=== PATIENT | male | born 1940 | race Caucasian/White ===

== ENCOUNTER → 2020-11-30 12:41 | Outpatient (CLI) | payer MEDICARE, SELFPAY ==
--- NOTE | 2020-11-30 12:51 | ECHOCS_ITS ---
Version 2 Reason For Study: AMALIA, Asthma, Afib Procedure This was a 2D Doppler, Color Flow transthoracic echocardiogram. The study was technically difficult. Contrast injection was performed. Bubble study performed. Exam performed in department. Left Ventricle Normal LV size. The estimated ejection fraction is 65 %. No evidence for diastolic dysfunction. No regional wall motion abnormalities noted. Right Ventricle Normal RV size. Normal systolic function. Atria The left atrium is mildly enlarged. The right atrium is mildly enlarged. Bubble study strongly positive for R to L shunt. Mitral Valve There is no mitral valve stenosis. Mild (1+) mitral valve insufficiency. Tricuspid Valve There is no tricuspid stenosis. Mild tricuspid valve insufficiency. Pulmonary artery systolic pressure is 30 mmHg. Aortic Valve Trisinus/trileaflet aortic valve. Aortic sclerosis, no stenosis. There is no aortic stenosis. No aortic valve insufficiency. Pulmonic Valve There is no pulmonic valvular stenosis. No pulmonic valve insufficiency. Great Vessels Normal aortic root. Pericardium/Pleural No pericardial effusion. Medication 22 gauge I.V. with prn adaptor inserted into right arm. Diluted definity 3ml given slow IV push to enhance endocardial definition. Performed a rapid injection of agitated mix of 9 cc saline and 1cc air to assess for atrial septal defect. MMode/2D Measurements & Calculations LVIDd: 4.4 cm IVSd: 1.1 cm Ao root diam: 3.7 cm LVIDs: 2.4 cm LVPWd: 1.2 cm LA dimension: 3.6 cm FS: 44.6 % LAV(MOD-bp): 122.3 ml LA A4 area: 34.8 cm2 RA A4 area: 24.1 cm2 LAV(MOD-bp) Indexed: 56.6 ml/m2 LAV(MOD-sp2): 116.8 ml LAV(MOD-sp4): 124.8 ml Time Measurements MV dec time: 0.37 sec Doppler Measurements & Calculations MV E max prashant: 63.5 cm/sec Lat Peak E' Prashant: 5.7 cm/sec Med Peak E' Prashant: 6.3 cm/sec MV A max prashant: 103.4 cm/sec E/E' lat: 11.2 E/E' med: 10.0 MV E/A: 0.61 MV V2 max: 112.8 cm/sec MV P1/2t max prashant: 76.2 cm/sec Ao V2 max: 134.1 cm/sec MV max P.1 mmHg MV P1/2t: 98.9 msec Ao max P.2 mmHg MV V2 mean: 55.8 cm/sec MV dec slope: 225.6 cm/sec2 MV mean P.5 mmHg MV V2 VTI: 33.5 cm MVA(P1/2t): 2.2 cm2 LV V1 max: 131.4 cm/sec MR max prashant: 497.0 cm/sec PA V2 max: 66.6 cm/sec LV V1 max P.9 mmHg MR max P.8 mmHg TR max prashant: 253.7 cm/sec TR max P.8 mmHg ECHO/Echo Complete W/ Contrast Interpretation Summary The estimated ejection fraction is 65 %. No evidence for diastolic dysfunction. The left atrium is mildly enlarged. The right atrium is mildly enlarged. Bubble study strongly positive for R to L shunt. Mild (1+) mitral valve insufficiency. Mild tricuspid valve insufficiency. The study was technically difficult. Contrast injection was performed. Ordering Physician: Sahil Seay Referring Physician: Eloy Russ Performed By: Carlos Maloney RCS
== END ==
PROVIDERS: PCP Family Medicine; Referring Provider Internal Medicine Pulmonary Disease; Visit Provider Internal Medicine Pulmonary Disease
DX: I48.91 Unspecified atrial fibrillation (principal); G47.33 Obstructive sleep apnea (adult) (pediatric); J45.909 Unspecified asthma, uncomplicated
CPT/HCPCS: 93306; Q9957; A4216; C8929; J3490